=== PATIENT | female | born 1960 | race Caucasian/White ===

== ENCOUNTER 2016-08-13 08:13 | Day surgery (SDC) | payer BC ==
[~2016-08-13] VITALS: Ht 160 cm; Wt 65.1 kg
[~2016-08-13 08:13] MED LIST: AVAPRO TAB150 MG/TAB PO; BACTRIM DS 8001 TAB PO; CYMBALTA; ELAVIL25 MG PO; LEXAPRO20 MG PO; ULTRAM 50MG TAB50 MG PO
[2016-08-13 08:45] VITALS: BP 119/81; PULSE 86; TEMP 97.8
[2016-08-13 10:30] VITALS: BP 137/63; PULSE 94
[2016-08-13 10:45] VITALS: BP 113/65; PULSE 83
== END 2016-08-13 11:07 | disposition home or self-care (01) ==
LOC: SDCO 08:13
DX: Z12.11 Encounter for screening for malignant neoplasm of colon (principal); Z86.010 Personal history of colon polyps; I11.9 Hypertensive heart disease without heart failure; K58.9 Irritable bowel syndrome, unspecified; E78.00 Pure hypercholesterolemia, unspecified
CPT/HCPCS: J2250; J3010; J7030

== ENCOUNTER → 2016-11-26 | Outpatient (CLI) | payer BC | LOC: MC.RAD 13:40 | DX: Z12.31 Encounter for screening mammogram for malignant neoplasm of breast (principal) ==